=== PATIENT | female | born 1950 | race Caucasian/White ===

== ENCOUNTER → 2020-01-24 | Outpatient (CLI) | payer MEDICARE, OTHER ==
--- NOTE | 2020-01-24 12:58 | MR ---
EXAMINATION TYPE: MR knee RT wo con DATE OF EXAM: 01/24/2020 COMPARISON: Outside right knee x-rays December 28, 2019 HISTORY: Rt knee pain, medial, x 6 mos TECHNIQUE: Multiplanar, multisequence imaging of the right knee is performed without IV contrast. FINDINGS: MEDIAL MENISCUS: Posterior horn is truncated with abnormal signal extending to inferior posterior mar gin. Anterior horn is intact. LATERAL MENISCUS: Horizontal increased signal through the lateral meniscus involves both anterior and posterior horns of central body with more heterogeneous signal in the anterior horn, extension to in ferior articular surface posterior horn noted coronal image 22. CRUCIATE LIGAMENTS: The anterior and posterior cruciate ligaments are intact and unremarkable. COLLATERAL LIGAMENTS: The medial collateral ligament and lateral collateral ligament complex are inta ct and unremarkable. EXTENSOR MECHANISM: Visualized quadriceps and patellar tendons are intact. Spurring from the anterior superior patella distal quadriceps tendon attachment. EFFUSION: Small suprapatellar joint effusion. POPLITEAL CYST: No popliteal/beard cyst. TRICOMPARTMENT SPACES: Mild to moderate tricompartment joint space loss greatest patellofemoral micah rtment, mild spurring at this level. CARTILAGE: Some chondromalacia patella with thinning of articular cartilage along the posterior [place] pole. BONE MARROW SIGNAL: No focal abnormal marrow signal is appreciated. OTHER: No additional significant abnormality is appreciated. IMPRESSION: 1. Full-thickness tear posterior horn of medial meniscus. 2. At least intrasubstance tear involving anterior horn and central body of lateral meniscus, there i s full-thickness tear noted in the posterior horn as vertical component is present. 3. Mild to moderate tricompartment degenerative changes greatest patellofemoral compartment as detail ed above. 4. Small suprapatellar joint effusion.
== END | disposition home or self-care (01) ==
LOC: RADMRIMAIN 10:24
PROVIDERS: ATTEND Orthopaedic Surgery
DX: S83.241A Other tear of medial meniscus, current injury, right knee, initial encounter (principal); S83.281A Other tear of lateral meniscus, current injury, right knee, initial encounter; M17.11 Unilateral primary osteoarthritis, right knee

== ENCOUNTER → 2020-03-16 | Day surgery (SDC) | payer MEDICARE, OTHER ==
[2020-03-14 13:34] VITALS: BMI 33.9
--- NOTE | 2020-03-15 15:27 | HP ---
HISTORY AND PHYSICAL CHIEF COMPLAINT: Right knee pain. HISTORY OF PRESENT ILLNESS: The patient is a 69-year-old retired female who presents with progressive right knee pain for the past several months. She is having swelling, intermittent giving way, and medial pain that interferes with her normal function and activities. She notes she has been limping. She has tried medications in addition to an injection, with only partial temporary relief. PAST MEDICAL HISTORY: Significant for type 2 diabetes, gastroesophageal reflux disease, hypertension, heart disease and atrial fibrillation. PAST SURGICAL HISTORY: Significant for breast biopsy and cataract surgery. CURRENT MEDICATIONS: Eliquis, fluoxetine, glipizide, Januvia, losartan, metformin, Pepcid, simvastatin. ALLERGIES: SHE DENIES DRUG ALLERGIES. FAMILY HISTORY: Significant for heart disease and cancer. SOCIAL HISTORY: Negative for current tobacco or alcohol use. REVIEW OF SYSTEMS: Sixteen-point review of systems otherwise reviewed and is noncontributory. PHYSICAL EXAMINATION: On examination, the patient is approximately 6 feet tall, 251 pounds of endomorphic habitus. HEENT exam is nonfocal. NECK: Supple. She has painless passive motion of the right hip. Straight-leg raise is negative. Active motion of right knee minus 10 to 120 degrees of flexion. She has a mild effusion. She is tender about the medial joint line. Collaterals are stable. Bertrand is negative. Rupesh's elicits medial pain. Her distal neurovascular appears intact to the right lower extremity. IMAGING: MRI report of right knee from 01/24/2020 shows evidence of medial and lateral meniscal tears. IMPRESSION: Internal derangement of right knee with symptomatic medial meniscal tear. RECOMMENDATION: I talked to the patient at length regarding her condition and treatment options. At this point she is quite symptomatic, having pain and mechanical symptoms despite conservative measures. After thorough discussion, she opted to proceed with surgery. We will proceed with arthroscopic evaluation with probable partial medial meniscectomy. We will likely perform that as an outpatient procedure. Risks and benefits were discussed at length in layman's terms. She did undergo preoperative cardiac clearance, and we will likely resume her Eliquis directly after the procedure. MMODL / IJN: [id number] /
[~2020-03-16] MED LIST: DEXAMETHASONE SOD PHOSPHATE 4 MG/ML 1 ML VIAL IV ONE; EPINEPHrine (PF) 1 ML in SODIUM CHLORIDE 0.9% IRRIGATIO 3,000 ML IRRIGATION ONE; HYDROcodone/APAP 5-325MG 1 EACH TAB ONE; HYDROcodone/APAP 5-325MG 1 EACH TAB PO ONE; KETOROLAC 15 MG/ML 1 ML VIAL ONE; LACTATED RINGERS 1,000 ML IV SCH; LIDOCAINE 1% INJ 10MG/ML (20 ML MDV) ONE; MIDAZOLAM 2 MG/2 ML VIAL IV PRN; MIDAZOLAM 2 MG/2 ML VIAL ONE; ONDANSETRON 4 MG/2 ML VIAL IVP ONE; PROPOFOL 10 MG/ML 20 ML VIAL IV ONE; SCOPOLAMINE 1.5MG/72HR PATCH TRANSDERM ONE; SUCCINYLCHOLINE CHLORIDE 100 MG/5 ML SYR IV ONE; fentaNYL (PF) 50 MCG/ML 2 ML AMP ONE
[2020-03-16 07:15] VITALS: TEMP 97.1
[2020-03-16 07:28] LABS: Glucose,Whole Blood 166 mg/dL (75-99)
[2020-03-16] MEDS: HYDROmorphone 0.5 MG/0.5 ML SYRINGE IVP PRN ×2 (08:54→09:00)
--- NOTE | 2020-03-16 08:55 | P.OP ---
Date of Procedure: 03/16/20 Preoperative Diagnosis: Right knee internal derangement Postoperative Diagnosis: Right knee posterior medial meniscal tear/grade 3 chondral injury distal medial femoral condyle/posterior lateral meniscal tear Procedure(s) Performed: Right knee arthroscopic partial medial meniscectomy/medial femoral chondrectomy/partial lateral meniscectomy/microfracture medial femoral condyle Anesthesia: LINDSAY Surgeon: Rick Gary Estimated Blood Loss (ml): 10 Pathology: none sent Condition: stable Disposition: PACU Indications for Procedure: The patient's a 69-year-old female presents with progressive right knee pain and mechanical symptoms after previous twisting injury despite conservative measures. A discussion of the risks and benefits of operative intervention versus continued conservative measures was made with the patient. She opted to proceed with surgery. Operative risks to include infection, neurovascular injury, development of blood clots, possible incomplete resolution of symptoms, possible worsening symptoms and need for subsequent procedures was discussed. Informed consent was obtained. Operative Findings: As below Description of Procedure: The patient was brought to the operating room, and after induction of general anesthesia examined the right knee. Collaterals were stable, Bertrand was negative, and posterior drawer was negative. The right lower extremity was prepped and draped in a normal fashion. A superior lateral portal was made through a 3 mm skin incision superior and lateral to the patella. This was used for outflow. A lateral portal was made through a 5 mm vertical skin incision lateral to the patella tendon above the joint line. Diagnostic arthroscopy was performed. On inspection of the medial compartment, a complex tear involving the posterior horn medial meniscus in the white-red junction was noted. This was debrided back to stable base with straight baskets and a motorized shaver. A grade 3 chondral injury involving the distal lateral portion medial femoral co ndyle was noted measuring 6 x 5 mm per this a loose chondral fragment degrees back to stable base with a motorized shaver. Microfracture was performed with a power pik reaching the subchondral surface down to the bone marrow elements. On inspection of the notch, the anterior cruciate ligament appeared to be intact. On inspection of the lateral compartment, a radial tear involving the middle one third of the lateral meniscus was noted in the white-white junction area and this debrided back to stable base with straight baskets and a motorized shaver.. On inspection of the patellofemoral articulation, there were degenerative changes 2/3 however no loose chondral fragments. The gutters were clear debris. The knee was then thoroughly irrigated. The portals were closed with Steri-Strips. A sterile dressing was applied in addition to a compression stocking. The patient was awoken from general anesthesia and transferred to recovery room in good condition. Blood loss was estimated at 10 mL. No complications were incurred.
[2020-03-16 09:03] LABS: Glucose,Whole Blood 195 mg/dL (75-99)
[2020-03-16 09:35] VITALS: RESP 16
[2020-03-16 09:59] VITALS: BP 128/68; PULSE 67
== END | disposition home or self-care (01) ==
LOC: OR 06:51
PROVIDERS: ATTEND Orthopaedic Surgery
DX: S83.241A Other tear of medial meniscus, current injury, right knee, initial encounter (principal); S83.281A Other tear of lateral meniscus, current injury, right knee, initial encounter; S89.81XA Other specified injuries of right lower leg, initial encounter; M23.41 Loose body in knee, right knee; I47.1 Supraventricular tachycardia; I48.0 Paroxysmal atrial fibrillation; I11.0 Hypertensive heart disease with heart failure; I50.30 Unspecified diastolic (congestive) heart failure; E11.9 Type 2 diabetes mellitus without complications; M54.12 Radiculopathy, cervical region; M19.90 Unspecified osteoarthritis, unspecified site; K21.9 Gastro-esophageal reflux disease without esophagitis; E78.5 Hyperlipidemia, unspecified; E66.9 Obesity, unspecified; G47.33 Obstructive sleep apnea (adult) (pediatric); Z79.01 Long term (current) use of anticoagulants; Z79.899 Other long term (current) drug therapy; Z87.442 Personal history of urinary calculi; Z68.34 Body mass index [BMI] 34.0-34.9, adult; Z98.890 Other specified postprocedural states; Z98.49 Cataract extraction status, unspecified eye; Z96.1 Presence of intraocular lens; Z87.19 Personal history of other diseases of the digestive system; Z79.4 Long term (current) use of insulin; Z80.9 Family history of malignant neoplasm, unspecified; Z83.3 Family history of diabetes mellitus; Z82.49 Family history of ischemic heart disease and other diseases of the circulatory system; X50.1XXA Overexertion from prolonged static or awkward postures, initial encounter
CPT/HCPCS: 29880; 29879; J2250; J1100; J0690; J2405; J0171; J2001; J3010; J1885; J0330; J2704; J1170

== ENCOUNTER 2022-07-09 05:47 | Day surgery (SDC) | payer MEDICARE, OTHER ==
[2022-07-04 08:51] VITALS: BMI 32.5
--- NOTE | 2022-07-08 13:00 | HP ---
HISTORY AND PHYSICAL DATE OF SURGERY: 07/09/2022 HISTORY OF PRESENT ILLNESS: Venita Butler is a 71-year-old patient seen with progressive right shoulder pain. We discussed treatment options. Patient elected to proceed with right shoulder arthroscopy. Consent regarding the procedure was obtained. PAST MEDICAL HISTORY: Insulin-dependent diabetes, hypertension, and hyperlipidemia. PAST SURGICAL HISTORY: Breast biopsy, cataract surgery, D and C. DAILY MEDICATIONS: 1. Eliquis. 2. Glipizide. 3. Januvia. 4. Metformin. 5. Losartan. 6. Metoprolol. 7. Simvastatin. 8. Lantus insulin. ALLERGIES: None. SOCIAL HISTORY: She denies current tobacco use. PHYSICAL EVALUATION OF RIGHT SHOULDER: Flexion is 120 degrees, abduction is 90 degrees, external rotation is 40 degrees with pain and weakness, tenderness along the anterior lateral acromion and rotator cuff insertion. Impingement is positive at 80 degrees. Cross-body adduction sign is positive. Drop-arm sign is positive. Distal neurovascular exam is intact. RADIOGRAPHS: Right shoulder radiographs revealed a type 2 acromion along with acromioclavicular joint osteoarthritis and cystic changes of the tuberosity. Right shoulder MRI revealed impingement, acromioclavicular joint osteoarthritis, biceps tendinitis, and rotator cuff tendinitis with partial tear. IMPRESSION: 1. Right shoulder impingement with partial rotator cuff tear. 2. Right shoulder acromioclavicular joint osteoarthritis. 3. Right shoulder biceps tendinitis. 4. Hypertension. 5. Hyperlipidemia. 6. Insulin-dependent diabetes. PLAN: Right shoulder arthroscopy with subacromial decompression, possible arthroscopic rotator cuff repair, Jarrod procedure and debridement. MMODL / IJN: [id number] /
[~2022-07-09 05:47] MED LIST changes: -EPINEPHrine (PF) 1 ML in SODIUM CHLORIDE 0.9% IRRIGATIO 3,000 ML IRRIGATION ONE; -HYDROcodone/APAP 5-325MG 1 EACH TAB ONE; -HYDROcodone/APAP 5-325MG 1 EACH TAB PO ONE; -KETOROLAC 15 MG/ML 1 ML VIAL ONE; +LIDOCAINE 1% (10MG/ML) FOR IV START INTRADERMA PRN; -LIDOCAINE 1% INJ 10MG/ML (20 ML MDV) ONE; -MIDAZOLAM 2 MG/2 ML VIAL ONE; -PROPOFOL 10 MG/ML 20 ML VIAL IV ONE; -SCOPOLAMINE 1.5MG/72HR PATCH TRANSDERM ONE; -SUCCINYLCHOLINE CHLORIDE 100 MG/5 ML SYR IV ONE; -fentaNYL (PF) 50 MCG/ML 2 ML AMP ONE
[2022-07-09] MEDS ORDERED: LACTATED RINGERS 1,000 ML IV ONE (06:30)
[2022-07-09 06:33] LABS: Glucose,Whole Blood 191 mg/dL (70-110)
[2022-07-09] MEDS ORDERED: ONDANSETRON 4 MG/2 ML VIAL ONE (06:40)
[2022-07-09] MEDS ORDERED: MIDAZOLAM 2 MG/2 ML VIAL IVP ONE (06:55)
[2022-07-09] MEDS ORDERED: HYDROmorphone 0.5 MG/0.5 ML SYRINGE IVP PRN (07:00)
[2022-07-09] MEDS ORDERED: NEOSTIGMINE 1 MG/ML 10 ML VIAL ONE (07:21)
[2022-07-09] MEDS ORDERED: LIDOCAINE 2% INJ 20 MG/ML (2 ML VIAL) ONE (07:21)
[2022-07-09] MEDS ORDERED: PROPOFOL 10 MG/ML 20 ML VIAL IV ONE (07:21)
[2022-07-09] MEDS ORDERED: MIDAZOLAM 2 MG/2 ML VIAL ONE (07:21)
[2022-07-09] MEDS ORDERED: SUCCINYLCHOLINE CHLORIDE 200 MG/10 ML VIAL IV ONE (07:21)
[2022-07-09] MEDS ORDERED: fentaNYL (PF) 50 MCG/ML 2 ML AMP ONE (07:21)
[2022-07-09] MEDS ORDERED: GLYCOPYRROLATE 0.2 MG/ML 2 ML VIAL ONE (07:21)
[2022-07-09] MEDS ORDERED: ROCURONIUM 10 MG/ML (5 ML VIAL) IV ONE (07:21)
[2022-07-09] MEDS ORDERED: ROPIVACAINE 5 MG/ML 30 ML VIAL ONE (07:21)
--- NOTE | 2022-07-09 08:11 | P.ANPRN ---
Procedure Note - Anesthesia - Nerve Block Performed Right Interscalene Time Out Performed: Yes (06:54) Date of Procedure: 07/09/22 Procedure Start Time: :54 Procedure Stop Time: 07:01 Location of Patient: PreOp Indication: Acute Post-Operative Pain, Requested by Surgeon (DR Geronimo) Sedation Type: Sedate with meaningful contact maintained Preparation: Sterile Prep Position: Supine Catheter: None Needle Types: Pajunk Needle Gauge: Other (see comment) (22g) Ultrasound used to visualize needle placement: Yes Ultrasound used to observe medication spread: Yes Injectate: 0.5% Ropivacaine (see comment for volume) (22cc) Blood Aspirated: No Pain Paresthesia on Injection Noted: No Resistance on Injection: Normal Image Stored and Saved: Yes Events: Uneventful and Well Tolerated
--- NOTE | 2022-07-09 09:11 | P.OP ---
Date of Procedure: 07/09/22 Preoperative Diagnosis: Right shoulder impingement Postoperative Diagnosis: 1. Right shoulder rotator cuff tear 2. Right shoulder impingement 3. Right shoulder acromioclavicular joint osteoarthritis 4. Right shoulder partial long head biceps tear 5. Right shoulder loose body 6. 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 Right shoulder arthroscopic rotator cuff repair 2. Right shoulder arthroscopic subacromial decompression 3. Right shoulder arthroscopic Jarrod procedure 4. Right shoulder arthroscopic biceps tenotomy 5. Right shoulder arthroscopic removal loose body Implants: 1Arthrex 4.75 swivel lock anchor Anesthesia: GETA, regional (Interscalene block) Surgeon: Ulisses Choi Kitchen Assistant #1: Yariel Locke Estimated Blood Loss (ml): 11 Pathology: none sent Condition: stable Disposition: PACU Indications for Procedure: 71-year-old patient seen with progressive right shoulder pain. After having treatment options discussed, she elected to proceed with arthroscopy. Operative Findings: See description of procedure Description of Procedure: Patient underwent an interscalene block by department of anesthesia. The patient was then taken to the operative suite. The patient underwent a general anesthetic by the department of anesthesia. The patient was placed into a lateral position and secured. There was appropriate padding of the bony prominence. Right shoulder was then prepped and draped in normal sterile orthopedic fashion. We placed the extremity in 10 pounds of longitudinal traction. A posterior incision was now made for a posterior working portal site. The trocar and cannula were inserted into the glenohumeral joint. Arthroscopy was initiated. Spinal needle was now inserted anteriorly, to ascertain the anterior working portal site. An incision was now made in that area, a trocar was inserted followed by a probe. There were grade 3/4 chondromalacia changes about the humeral head and glenoid fossa. There was a large loose body present. I introduced a loose body forceps and remove the loose body without difficulty. I noted some partial tearing long head biceps tendon. I performed an arthroscopic biceps tenotomy. There was some superficial fraying of the superior labrum. I debrided that out with a motorized shaver. Residual labrum appeared stable. I again noted grade 3/4 chondromalacia changes of glenohumeral joint. There were no Quiñones and osteochondral tears present. At this point instruments were removed from glenohumeral joint. Utilizing the posterior working portal site, the trocar and cannula were inserted into the subacromial space. Arthroscopy initiated. I made an incision 2 fingerbreadths lateral to the acromion. I introduced my trocar followed by my ArthroCare ablator. I now began ablating thick subacromial bursal tissue, which exposed the undersurface of the anterior acromion. There was diminished subacromial space. There was a very prominent anterior acromion. A motorized bur was introduced and a subacromial decompression was performed. I also excised some osteophytes off the inferior aspect of the distal clavicle. The AC joint was visualized and noted to be fairly arthritic. The motorized bur was introduced in the anterior portal site and a Jarrod procedure was performed without difficulty, decompressing the AC joint nicely. I turned my attention to the rotator cuff. There was a 1 cm full-thickness perforation/rotator cuff tear. I also noted a 1.5 cm intrasubstance tear along the posterior aspect of the distal supraspinatus tendon. I debrided the margins getting down to stable tendon tissue. I introduced my motorized bur and abraded the footprint area, getting some petechial bleeding. I now with the assistance of Isma TABARES repaired the intrasubstance tear with 2 simple interrupted sutures. I probed the repair and it was stable. I turned my attention to the distal supraspinatus tendon tear. That defect/tear measuring approximately 1.5 cm and was freely mobile over the footprint. With the assistance of Isma TABARES passed 2 everted mattress suture through good bites of rotator cuff tendon. I now pun ched the hole on the footprint area for insertion of an anchor. All 4 limbs of suture were passed through the eyelet of a 4.75 swivel lock anchor. I placed the eyelet into our pre-punch hole. I held in position while Isma TABARES tensioned all 4 limbs of suture and deployed the anchor with good fixation noted. All residual suture limbs were now clipped. We had good compression of the tendon along the entire footprint. Instruments now removed from the portal sites. All portal sites were approximated with nylon suture. Sterile dressings were applied followed by a shoulder sling. Yariel TABARES assisted in this complex case. The patient was awakened, transferred to a bed, and taken to recovery in stable condition.
[2022-07-09 09:15] VITALS: TEMP 97
[2022-07-09 09:21] LABS: Glucose,Whole Blood 186 mg/dL (70-110)
[2022-07-09 10:16] VITALS: RESP 16
[2022-07-09 10:57] VITALS: BP 112/78; PULSE 65
== END 2022-07-09 11:21 | disposition home or self-care (01) ==
LOC: OR 05:47
PROVIDERS: ATTEND Orthopaedic Surgery
DX: M75.121 Complete rotator cuff tear or rupture of right shoulder, not specified as traumatic (principal); M19.011 Primary osteoarthritis, right shoulder; M24.011 Loose body in right shoulder; M75.41 Impingement syndrome of right shoulder; S46.111A Strain of muscle, fascia and tendon of long head of biceps, right arm, initial encounter; S43.431A Superior glenoid labrum lesion of right shoulder, initial encounter; M75.21 Bicipital tendinitis, right shoulder; M94.211 Chondromalacia, right shoulder; X58.XXXA Exposure to other specified factors, initial encounter; I48.91 Unspecified atrial fibrillation; I12.9 Hypertensive chronic kidney disease with stage 1 through stage 4 chronic kidney disease, or unspecified chronic kidney disease; N18.30 Chronic kidney disease, stage 3 unspecified; E78.5 Hyperlipidemia, unspecified; E11.22 Type 2 diabetes mellitus with diabetic chronic kidney disease; Z79.84 Long term (current) use of oral hypoglycemic drugs; Z79.01 Long term (current) use of anticoagulants; Z79.4 Long term (current) use of insulin; Z79.899 Other long term (current) drug therapy; K21.9 Gastro-esophageal reflux disease without esophagitis; G89.18 Other acute postprocedural pain; Z88.4 Allergy status to anesthetic agent
CPT/HCPCS: 29827; 29824; 29834; 29826; 64415; 76942; C1894; C1713 ×2; J2250; J0330; J2710; J0690; J2405; J3010; J2795; J2704; J2001